=== PATIENT | female | born 1970 | race Caucasian/White ===

== ENCOUNTER 2021-11-30 14:50 | Outpatient (RCR) | payer OTHER | END 2021-12-09 | disposition home or self-care (01) | PROVIDERS: ATTEND Nurse Practitioner Family | DX: N81.10 Cystocele, unspecified (principal) ==

== ENCOUNTER 2021-12-30 14:14 | Outpatient (RCR) | payer OTHER | END 2022-01-08 | disposition home or self-care (01) | PROVIDERS: ATTEND Nurse Practitioner Family | DX: N81.10 Cystocele, unspecified (principal); N39.3 Stress incontinence (female) (male) ==

== ENCOUNTER 2022-01-13 09:25 | Outpatient (RCR) | payer OTHER | END 2022-02-08 | disposition home or self-care (01) | PROVIDERS: ATTEND Nurse Practitioner Family | DX: N81.10 Cystocele, unspecified (principal); N39.3 Stress incontinence (female) (male) ==

== ENCOUNTER 2022-02-15 15:30 | Outpatient (RCR) | payer OTHER | END 2022-03-03 15:40 | disposition home or self-care (01) | PROVIDERS: ATTEND Nurse Practitioner Family | DX: N81.10 Cystocele, unspecified (principal); N39.3 Stress incontinence (female) (male) ==